=== PATIENT | female | born 1950 | race Caucasian/White ===

== ENCOUNTER 2024-01-13 17:30 | Emergency (ER) | payer MEDICARE ==
--- NOTE | 2024-01-13 17:38 | ERPHSYRPT ---
- History of Present Illness Time Seen by Provider: 01/13/24 17:38 Source: patient, family Exam Limitations: no limitations Physician History: This is a 73-year-old white female patient of Dr. Walsh who presents to the emergency department by private vehicle escorted by her spouse because of left lower extremity numbness and achiness when attempting to ambulate. Patient was not walking well yesterday she is dates. Symptoms began yesterday morning, 01/12/2024. Today the symptoms are slightly worse. Patient does have a history of sciatica. Patient has a history of hypertension and insulin-dependent diabetes. Patient denies urinary or bowel incontinence. She has no constipation. Method of Injury: unknown Occurred: yesterday Quality: aching (Attempting to ambulate the left lower extremity ache) Severity of Pain-Max: moderate (When trying to ambulate) Severity of Pain-Current: none Lower Extremities Pain: leg: left Modifying Factors: Improves With: movement Associated Symptoms: unable to bear weight (Secondary to weakness and achiness of the left lower extremity) Allergies/Adverse Reactions: codeine Allergy (Severe, Verified 01/13/24 17:57) hyperventilating Home Medications: Empagliflozin/Linagliptin [Glyxambi 25 mg-5 mg Tablet] 1 tab PO DAILY 01/13/24 [History] Insulin Glargine [Lantus Insulin] 15 unit SQ DAILY 01/13/24 [History] Lisinopril 10 mg [Zestril 10 MG] 10 mg PO DAILY 01/13/24 [History] Travel Risk - International Travel Have you traveled outside of the country in past 3 weeks: No - Emerging Infectious Disease Are you exhibiting symptoms associated with any current EIDs: No - Review of Systems Constitutional: No Symptoms Eyes: No Symptoms Ears, Nose, & Throat: No Symptoms Respiratory: No Symptoms Cardiac: No Symptoms Abdominal/Gastrointestinal: No Symptoms Genitourinary Symptoms: No Symptoms Musculoskeletal: Other (Of lower extremity numbness and achiness) Skin: No Symptoms Neurological: Focal Weakness (Left lower extremity only) Psychological: No Symptoms Endocrine: No Symptoms Hematologic/Lymphatic: No Symptoms Immunological/Allergic: No Symptoms All Other Systems: Reviewed and Negative - Past Medical History Pertinent Past Medical History: Yes - Nursing Vital Signs Nursing Vital Signs: Initial Vital Signs Temperature 97.5 F 01/13/24 17:49 Pulse Rate 102 H 01/13/24 17:49 Respiratory Rate 20 01/13/24 17:49 Blood Pressure 244/117 01/13/24 17:49 O2 Sat by Pulse Oximetry 95 01/13/24 17:49 Pain Scale Pain Intensity 5 - Physical Exam General Appearance: no apparent distress, alert, anxiety Eyes, Ears, Nose, Throat Exam: normal ENT inspection, moist mucous membranes Neck Exam: normal inspection, non-tender, supple, full range of motion Cardiovascular/Respiratory Exam: chest non-tender, normal breath sounds, regular rate/rhythm, heart sounds normal, no ecchymosis, no JVD, no M/R/G, no respiratory distress Gastrointestinal/Abdominal Exam: non-tender Back Exam: normal inspection, normal range of motion, No CVA tenderness, No vertebral tenderness Hips Exam: bilateral: non-tender, normal inspection, normal range of motion, no evidence of injury Legs Exam: right leg: normal range of motion, left leg: other (Decreased movement, weakness, numbness left lower extremity primarily below the knee), bilateral leg: non-tender, normal inspection, no evidence of injury Knees Exam: bilateral knee: non-tender, normal inspection, normal range of motion, no evidence of injury Ankle Exam: bilateral ankle: non-tender, normal inspection, normal range of motion, no evidence of injury Foot Exam: left foot: other (Strongly dopplerable dorsalis pedis and posterior tibial artery pulsations), bilateral foot: non-tender, normal inspection, normal range of motion, no evidence of injury Neuro/Tendon Exam: normal motor functions, normal tendon functions, responds to pain, no evidence tendon injury Mental Status Exam: alert, oriented x 3, cooperative Skin Exam: normal color, warm, dry SpO2 Interpretation: normal O2 Delivery: Room Air - Course Nursing assessment & vital signs reviewed: Yes Ordered Tests: Active Orders 24 hr Category Date Time Status NPO (ED) STAT Care 01/13/24 18:19 Active HEAD WITHOUT CONTRAST [CT] Stat Exams 01/13/24 18:18 Completed LUMBAR SPINE W/O [CT] Stat Exams 01/13/24 18:18 Completed CBC W DIFF Stat Lab 01/13/24 18:35 Completed CMP Stat Lab 01/13/24 18:35 Completed MAG [MAGNESIUM] Stat Lab 01/13/24 18:35 Completed UA W/RFX UR CULTURE Stat Lab 01/13/24 18:19 Ordered Medication Summary Discontinued Medications Generic Name Dose Route Start Last Admin Trade Name Beba PRN Reason Stop Dose Admin Methylprednisolone Sodium 0 mg 01/13/24 20:23 01/13/24 20:43 Succinate 125 mg/ Sterile IV 01/13/24 20:24 125 mg Water 2 ml STAT ONE Administration Enalaprilat 1.25 mg 01/13/24 18:46 01/13/24 18:53 Enalaprilat 2.5 Mg Injection IV 01/13/24 18:47 1.25 mg STAT ONE Administration Enalaprilat Confirm 01/13/24 18:52 Enalaprilat 2.5 Mg Injection Administered 01/13/24 18:53 Dose 2.5 mg IV .STK-MED ONE Labetalol HCl 10 mg 01/13/24 20:27 01/13/24 20:44 Labetalol Hcl 20 Mg/4 Ml Disp.Syringe IV 01/13/24 20:28 10 mg STAT ONE Administration Labetalol HCl Confirm 01/13/24 20:33 Labetalol Hcl 20 Mg/4 Ml Disp.Syringe Administered 01/13/24 20:34 Dose 20 mg IV .STK-MED ONE Methylprednisolone Sodium Succinate Confirm 01/13/24 20:33 Methylprednis Sod Succ 125 Mg/2 Ml Vial Administered 01/13/24 20:34 Dose 125 mg .ROUTE .STK-MED ONE Orphenadrine Citrate 60 mg 01/13/24 20:23 01/13/24 20:37 Orphenadrine Citrate 60 Mg/2 Ml Vial IV 01/13/24 20:24 60 mg STAT ONE Administration Orphenadrine Citrate Confirm 01/13/24 20:33 Orphenadrine Citrate 60 Mg/2 Ml Vial Administered 01/13/24 20:34 Dose 60 mg .ROUTE .STK-MED ONE Sterile Water Confirm 01/13/24 20:32 Water For Injection,Sterile 10 Ml Vial Administered 01/13/24 20:33 Dose 10 ml IJ .STK-MED ONE Lab/Rad Data: Laboratory Result Diagrams 01/13/24 18:35 01/13/24 18:35 Laboratory Results 01/13/24 01/13/24 01/13/24 Range/Units 18:35 18:35 18:35 WBC 14.2 H (3.98-10.04) x10^3/uL RBC 4.45 (3.93-5.22) x10^6/uL Hgb 13.8 (11.2-15.7) g/dL Hct 40.5 (34.1-44.9) % MCV 91.0 (79.4-94.8) fL MCH 31.0 (25.6-32.2) pg MCHC 34.1 (32.2-35.5) g/dL RDW 13.7 (11.7-14.4) % Plt Count 362 (182-369) x10^3/uL MPV 10.2 (9.4-12.3) fL Gran % 74.1 H (34.0-71.1) % Immature Gran % (Auto) 0.4 (0.001-0.429) % Nucleat RBC Rel Count 0.0 (0.00-0.2) % Eos # (Auto) 0.02 L (0.04-0.36) x10^3/uL Immature Gran # (Auto) 0.05 H (0.001-0.031) x10^3u/L Absolute Lymphs (auto) 2.49 (1.18-3.74) x10^3/uL Absolute Monos (auto) 1.05 H (0.24-0.86) x10^3/uL Absolute Nucleated RBC 0.00 (0.00-0.012) x10^3u/L Lymphocytes % 17.6 L (19.3-51.7) % Monocytes % 7.4 (4.7-12.5) % Eosinophils % 0.1 L (0.7-5.8) % Basophils % 0.4 (0.1-1.2) % Absolute Granulocytes 10.48 H (1.56-6.13) x10^3/uL Basophils # 0.06 (0.01-0.08) x10^3/uL Sodium 143 (135-145) mmol/L Potassium 3.6 (3.5-5.1) mmol/L Chloride 107 (98-107) mmol/L Carbon Dioxide 22 (22-30) mmol/L Anion Gap 16.9 H (5-15) MEQ/L BUN 16 (7-17) mg/dL Creatinine 0.82 (0.52-1.04) mg/dL Estimated GFR 76.4 ML/MIN Glucose 144 H (74-106) mg/dL Calcium 9.7 (8.4-10.2) mg/dL Magnesium 2.2 (1.6-2.3) mg/dL Total Bilirubin 0.40 (0.2-1.3) mg/dL AST 37 H (14-36) U/L ALT 29 (0-35) U/L Alkaline Phosphatase 76 (38-126) U/L Serum Total Protein 7.7 (6.3-8.2) g/dL Albumin 4.7 (3.5-5.0) g/dL - Progress Progress: unchanged, re-examined Progress Note: 01/13/24 18:30 My medical decision making and the assignment of moderate complexity to this patient's medical issue today is based on review of the patient's past medical history, review of the patient's medication list, reviewed patient drug allergy list, history present illness and physical findings on examination. The workup today includes CT scan of the head, CT scan of lumbar spine, CBC, CMP, magnesium level and urinalysis. Differential diagnosis includes but is not limited to neurologic abnormality left lower extremity, TIA/CVA, lumbar spine abnormality 01/13/24 20:24 Patient does have a leukocytosis. I interpreted the lab results. The urinalysis is still pending. CT scan of the head without contrast was interpreted by the radiologist and I reviewed the impression. The impression states atrophy and degenerative micro ischemia within normal limits. Remote lacunar infarct left basal ganglia and small remote infarct right vertex. No acute intracranial abnormalities. CT scan of the lumbar spine without contrast was interpreted by the radiologist and I reviewed the impression. The impression states multilevel degenerative disc disease. No spinal stenosis. No acute compression fracture or subluxation. No acute findings. This patient woke up yesterday and was having difficulty walking because of numbness in her left lower extremity as well as achiness when attempting to ambulate. Her symptoms were worse today. She has a nonfocal neurologic exam. She has blood flow down to her left foot. There is no evidence of any acute isc hemia intracranially based on her CT scan results. There is also no evidence of any spinal stenosis or spinal cord compression. There are no acute compression fractures or subluxation on the CT scan of the lumbar spine. My plan is to provide her with a dose of intravenous Solu-Medrol and a dose of intravenous orphenadrine to see if this helps her move her left lower extremity. We will contact neurology if there is no change in her ability to ambulate. Patient is aware that we do not have MRI services after hours and on weekends. 01/13/24 21:36 I reviewed the workup results with the patient and her spouse. Patient still cannot move her left lower extremity and has difficulty weightbearing on that left lower leg. The numbness is still present from the knee distally. I recommend a teleneurology consultation. The patient and the spouse understand my recommendations and continued stay in the emergency department till we complete the workup. The patient is refusing further workup. She is awake alert and oriented and wants to go home. We will send a prescription of prednisone and orphenadrine to the patient's pharmacy. Patient will sign AGAINST MEDICAL ADVICE form. She and her are aware that her condition may worsen and she may fall injuring herself significantly or worse. 01/13/24 21:39 Counseled pt/family regarding: lab results, diagnosis, rad results Medical Desision Making - Independent Historian Additional History obtained from: Spouse - Diagnostic Testing Diagnostic test were ordered, analyzed, and reviewed by me: Yes Radiological Interpretation: Reviewed by me, Teleradiologist Report - Risk of complications The pt has a mod risk of morbidity or mortality based on: Need for prescription drug management - Departure Departure Disposition: AMA Clinical Impression: Left leg weakness, Left leg numbness Condition: Stable Critical Care Time: No Referrals: HUNTER RANKIN DO [Primary Care Provider] - Follow up/PCP as directed Additional Instructions: Take all your medications as prescribed. Return to the emergency department if you wish to have the workup completed. Call your primary care provider on 01/16/2024, to make arrangements for evaluation to be seen in 2 to 3 days. Prescriptions: Prednisone 10 mg [Deltasone 10 mg] 10 mg PO TID #12 tablet Orphenadrine Citrate 100 mg [Norflex 100 MG Tablet] 100 mg PO BID #10 tab
[2024-01-13 17:57] VITALS: TEMP 97.5
[2024-01-13 18:50] LABS: Absolute Neutrophil Ct (ANC) 10.48 x10^3/uL (1.56-6.13); BASOPHIL % 0.4 % (0.1-1.2); Basophil (Absolute #) 0.06 x10^3/uL (0.01-0.08); Eosinophil % 0.1 % (0.7-5.8); Eosinophil (Absolute #) 0.02 x10^3/uL (0.04-0.36); Hematocrit 40.5 % (34.1-44.9); Hemoglobin 13.8 g/dL (11.2-15.7); IMMATURE GRAN # 0.05 x10^3u/L (0.001-0.031); IMMATURE GRAN % 0.4 % (0.001-0.429); Lymphocyte (Absolute #) 2.49 x10^3/uL (1.18-3.74); Lymphocytes % 17.6 % (19.3-51.7); Mean Corpuscular Hgb Concent. 34.1 g/dL (32.2-35.5); Mean Platelet Volume 10.2 fL (9.4-12.3); Monocyte (Absolute #) 1.05 x10^3/uL (0.24-0.86); Monocytes % 7.4 % (4.7-12.5); Neutrophil % 74.1 % (34.0-71.1); Platelet Count 362 x10^3/uL (182-369); Red Blood Count 4.45 x10^6/uL (3.93-5.22); Red Cell Distribution Width 13.7 % (11.7-14.4); White Blood Count 14.2 x10^3/uL (3.98-10.04)
[2024-01-13] MEDS ORDERED: ENALAPRILAT 2.5 MG INJECTION IV ONE (18:52)
[2024-01-13] MEDS: ENALAPRILAT 2.5 MG INJECTION IV ONE (18:53)
[2024-01-13 19:55] LABS: ALBUMIN 4.7 g/dL (3.5-5.0); ANION GAP 16.9 MEQ/L (5-15); BILIRUBIN,TOTAL 0.4 mg/dL (0.2-1.3); Calcium 9.7 mg/dL (8.4-10.2); Creatinine 1 0.82 mg/dL (0.52-1.04); EST GLOMERULAR FILTRATION RATE 76.4 ML/MIN; Potassium 3.6 mmol/L (3.5-5.1); Total Protein 7.7 g/dL (6.3-8.2)
--- NOTE | 2024-01-13 20:08 | XRAY ---
Indication: Unable to move left lower extremity. Multiple contiguous axial images obtained through the head without contrast. Comparison: None Age-appropriate global atrophy and moderate periventricular degenerative micro-ischemia bilaterally. Small focus remote infarct right vertex. Remote lacunar infarct left basal ganglia. No acute intracranial hemorrhage, abnormal extra-axial fluid collection, or mass effect. Fourth ventricle is midline without hydrocephalus. Bony calvarium intact. Visualized paranasal sinuses and mastoid air cells are clear. Impression: 1. Atrophy and degenerative micro-ischemia within normal limits. Remote lacunar infarct left basal ganglia and small remote infarct right vertex. 2. No acute intracranial abnormalities.
--- NOTE | 2024-01-13 20:11 | XRAY ---
Indication: Unable to move left lower extremity. Multiple contiguous axial images obtained through the lumbar spine. Sagittal and coronal reformatted images obtained. Comparison: None. Axial images demonstrates moderate broad-based disc osteophyte complex at L1-L2 level and lesser degree L4-S1 levels with minimal L4-L5 degenerative vacuum disc phenomena. L4-S1 levels demonstrates bilateral foraminal stenosis, left greater than right. No large disc herniation or spinal canal stenosis. Facets are symmetric with mild bilateral-S1 degenerative facet upper hypertrophy. Sagittal and coronal reformatted images demonstrate normal lumbar lordosis with moderate levorotoscoliosis centered at L2. L1-L2 and L4-S1 disc space narrowing. No acute compression fracture or subluxation. Visualized noncontrasted soft tissues demonstrates mild scattered aortoiliac calcifications. Impression: 1. Chronic findings including multilevel degenerative disc disease as detailed better evaluated with outpatient MRI. 2. Incidental levorotoscoliosis and arteriosclerotic disease. 3. No acute findings.
[2024-01-13] MEDS ORDERED: Sterile H2O 10 ml IJ ONE (20:32)
[2024-01-13] MEDS ORDERED: solu-MEDROL ONE (20:33)
[2024-01-13] MEDS ORDERED: TRANDATE 20 MG/4 ML SYRINGE IV ONE (20:33)
[2024-01-13] MEDS ORDERED: Norflex 60 MG/2 ML ONE (20:33)
[2024-01-13] MEDS: Norflex 60 MG/2 ML IV ONE (20:37)
[2024-01-13] MEDS: solu-MEDROL 125 MG, Sterile H2O 10 ml 2 ML IV ONE (20:43)
[2024-01-13] MEDS: TRANDATE 20 MG/4 ML SYRINGE IV ONE (20:44)
[2024-01-13 21:12] VITALS: BP 205/94; PULSE 77; RESP 16; O2SAT 97
== END 2024-01-13 21:54 | disposition left against medical advice (07) ==
LOC: ED 17:30
DX: R20.0 Anesthesia of skin (principal); M62.81 Muscle weakness (generalized); I10 Essential (primary) hypertension; E11.9 Type 2 diabetes mellitus without complications; Z79.84 Long term (current) use of oral hypoglycemic drugs; Z79.4 Long term (current) use of insulin; Z79.899 Other long term (current) drug therapy
CPT/HCPCS: 36000; 36415; 70450; 72131; 80053; 83735; 85025; 96374; 96375; 99284; J2360; J2919